=== PATIENT | female | born 1975 | race Caucasian/White ===

== ENCOUNTER → 2016-11-19 | Outpatient (REF) ==
[2015-07-20 10:44] VITALS: BP 130/81
[~2016-11-19] MED LIST: FLONASE ALLERG9.9 ML NS; WAL-ZYR10 M1 PO
== END ==
LOC: LAB 07:57
DX: Z00.00 Encounter for general adult medical examination without abnormal findings (principal); E78.00 Pure hypercholesterolemia, unspecified

== ENCOUNTER → 2017-08-03 | Outpatient (CLI) | payer BC ==
[~2017-08-03] VITALS: Ht 160 cm; Wt 125.0 kg
[2017-08-03 10:50] VITALS: BP 132/74
== END ==
LOC: AMSURD 10:17
DX: R07.89 Other chest pain (principal); Z56.6 Other physical and mental strain related to work; Z41.9 Encounter for procedure for purposes other than remedying health state, unspecified

== ENCOUNTER → 2019-07-07 | Outpatient (CLI) | payer BC ==
[2017-08-03 10:50] VITALS: BP 132/74
== END ==
LOC: CARDREHAB 07:49
DX: R07.9 Chest pain, unspecified (principal)

== ENCOUNTER 2019-12-25 11:26 | Emergency (ER) | payer BC ==
[~2019-12-25] VITALS: Ht 160 cm; Wt 105.5 kg
[2019-12-25] MEDS ORDERED: PHENTERMINE H37.5 M2 PO (11:38)
[2019-12-25 12:00] LABS: EOS # 0.2 (0.04-0.40); EOS % 2.8 % (1.0-5.0); HEMATOCRIT 43.8 % (37.0-47.0); HEMOGLOBIN 14.4 g/dL (12.5-16.0); LYMPH# 2.9 (1.50-4.00); MEAN CELL VOLUME 89 fl (78-100); MEAN CORPUSCULAR HEMOGLOBIN 29 pg (27-31); MEAN CORPUSCULAR HGB CONC 33 g/dL (33-37); MEAN PLATELET VOLUME 10.6 fl (7.4-10.4); MONO # 0.6 (0.20-0.80); NEU # 4.9 (1.40-6.50); PLATELET COUNT 214 K/mm3 (130-400); RED CELL DISTRIBUTION WIDTH 13.4 % (11.5-14.5); WHITE BLOOD COUNT 8.7 K/mm3 (4.8-10.8)
[2019-12-25 12:12] LABS: ALBUMIN 3.9 g/dL (3.5-5.0); POTASSIUM 3.4 mmol/L (3.5-5.1); SODIUM 137 mmol/L (136-145)
[2019-12-25 12:13] LABS: CALCIUM 8.6 mg/dL (8.3-10.5)
[2019-12-25 12:14] LABS: GLUCOSE 118 mg/dL (65-105)
[2019-12-25 12:15] LABS: TOTAL PROTEIN 7.1 g/dL (6.4-8.3)
[2019-12-25 12:16] LABS: CARBON DIOXIDE 25 mmol/L (22-29); TOTAL BILIRUBIN 0.3 mg/dL (0.2-1.2)
[2019-12-25 12:20] LABS: AST-SGOT 16 U/L (5-34)
[2019-12-25 12:21] LABS: ALT/SGPT 19 U/L (0-55)
[2019-12-25 12:28] LABS: TROPONIN-I < 0.03 ng/mL (<0.030)
[2019-12-25 12:35] LABS: D-DIMER 0.46 mg/L FEU (0.15-0.50)
[2019-12-25 13:15] VITALS: BP 134/89
== END 2019-12-25 13:19 | disposition home or self-care (01) ==
LOC: ED 11:26
PROVIDERS: Nurse Practitioner Primary Care
DX: R07.89 Other chest pain (principal); F41.9 Anxiety disorder, unspecified; Z79.51 Long term (current) use of inhaled steroids

== ENCOUNTER → 2020-03-08 | Outpatient (CLI) | payer BC ==
[~2020-03-08] MED LIST changes: +PHENTERMINE H37.5 M2 PO
== END ==
LOC: RAD 14:20
DX: M18.11 Unilateral primary osteoarthritis of first carpometacarpal joint, right hand (principal); M18.12 Unilateral primary osteoarthritis of first carpometacarpal joint, left hand

== ENCOUNTER → 2020-10-23 | Outpatient (REF) | LOC: LAB 07:22 | DX: Z00.00 Encounter for general adult medical examination without abnormal findings (principal); E78.00 Pure hypercholesterolemia, unspecified ==

== ENCOUNTER → 2021-05-09 | Outpatient (CLI) | payer BC | LOC: LAB 14:07 | DX: Z20.822 Contact with and (suspected) exposure to COVID-19 (principal) ==

== ENCOUNTER 2022-03-02 08:00 | Outpatient (RCR) | payer BC | END 2022-03-30 09:31 | disposition still patient (30) | LOC: OT 08:00 | DX: Z96.692 Finger-joint replacement of left hand (principal) ==

== ENCOUNTER → 2022-08-15 | Outpatient (CLI) | payer BC ==
[2022-08-15 12:17] LABS: URINE APPEARANCE HAZY; URINE COLOR YELLOW; URINE GLUCOSE NEGATIVE (NEGATIVE); URINE PROTEIN(semi-quant) 1+ (NEGATIVE)
[2022-08-15 12:18] LABS: URINE BILIRUBIN NEGATIVE (NEGATIVE); URINE BLOOD NEGATIVE (NEGATIVE); URINE KETONE TRACE (NEGATIVE); URINE NITRATE NEGATIVE (NEGATIVE); URINE UROBILINOGEN NORMAL (NORMAL); URINE WBC 0-1 /hpf (0-3)
[2022-08-15 12:19] LABS: URINE LEUKOCYTE ESTERASE NEGATIVE (NEGATIVE)
== END ==
LOC: LAB 11:06
PROVIDERS: Nurse Practitioner Family
DX: R30.0 Dysuria (principal)

== ENCOUNTER → 2023-06-30 | Outpatient (CLI) | payer BC | LOC: LAB 08:33 | DX: R73.9 Hyperglycemia, unspecified (principal) ==

== ENCOUNTER → 2023-12-21 | Outpatient (CLI) | payer BC ==
[2023-12-21 09:40] LABS: BASO # 0.03 K/mm3 (0.02-0.10); EOS # 0.26 K/mm3 (0.04-0.40); EOS % 3.2 % (1.0-5.0); HEMATOCRIT 44.6 % (37.0-47.0); HEMOGLOBIN 14.3 g/dL (12.5-16.0); LYMPH# 2.47 K/mm3 (1.50-4.00); MEAN CELL VOLUME 92 fl (78-100); MEAN CORPUSCULAR HEMOGLOBIN 30 pg (27-31); MEAN CORPUSCULAR HGB CONC 32 g/dL (33-37); MEAN PLATELET VOLUME 10.7 fl (7.4-10.4); MONO # 0.41 K/mm3 (0.20-0.80); NEU # 5.04 K/mm3 (1.40-6.50); PLATELET COUNT 219 K/mm3 (130-400); RED BLOOD COUNT 4.85 M/mm3 (4.10-5.30); RED CELL DISTRIBUTION WIDTH 13.1 % (11.5-14.5); WHITE BLOOD COUNT 8.2 K/mm3 (4.8-10.8)
[2023-12-21 09:46] LABS: ALBUMIN 3.8 g/dL (3.5-5.0)
[2023-12-21 09:47] LABS: CALCIUM 9.4 mg/dL (8.3-10.5)
[2023-12-21 09:48] LABS: TOTAL PROTEIN 6.9 g/dL (6.4-8.3)
[2023-12-21 10:31] LABS: TOTAL BILIRUBIN 0.4 mg/dL (0.2-1.2)
== END ==
LOC: LAB 09:29
PROVIDERS: Family Medicine
DX: E78.00 Pure hypercholesterolemia, unspecified (principal); E11.9 Type 2 diabetes mellitus without complications; I10 Essential (primary) hypertension; E55.9 Vitamin D deficiency, unspecified; E03.9 Hypothyroidism, unspecified

== ENCOUNTER → 2024-03-27 | Day surgery (SDC) | payer BC | LOC: MSO 07:08 | DX: Z12.11 Encounter for screening for malignant neoplasm of colon (principal); K57.30 Diverticulosis of large intestine without perforation or abscess without bleeding | CPT/HCPCS: 00812; J2704; J7120 ==